=== PATIENT | female | born 1990 | race Caucasian/White ===

== ENCOUNTER 2018-11-29 19:57 | Outpatient (CLI) | payer MEDICAID ==
[~2018-11-29] VITALS: Ht 165.1 cm; Wt 61.0 kg
== END 2018-11-29 22:27 | disposition home or self-care (01) ==
LOC: LDOP 19:57
PROVIDERS: ATTEND Obstetrics & Gynecology
DX: O62.9 Abnormality of forces of labor, unspecified (principal); Z3A.38 38 weeks gestation of pregnancy
CPT/HCPCS: 59025; 80053; 81001; 85025; 87086; 99211; G0463

== ENCOUNTER 2018-12-28 09:37 | Observation (INO) | payer MEDICAID ==
[2018-12-28 09:52] VITALS: BP 111/75
== END 2018-12-29 07:50 | disposition home or self-care (01) ==
LOC: LDOP 09:37 → LDIP 09:41
PROVIDERS: ADMIT Obstetrics & Gynecology; ATTEND Obstetrics & Gynecology
DX: O36.5930 Maternal care for other known or suspected poor fetal growth, third trimester, not applicable or unspecified (principal); O36.8130 Decreased fetal movements, third trimester, not applicable or unspecified; W01.198A Fall on same level from slipping, tripping and stumbling with subsequent striking against other object, initial encounter; Y93.E1 Activity, personal bathing and showering; Z3A.34 34 weeks gestation of pregnancy; Z88.0 Allergy status to penicillin; Z88.8 Allergy status to other drugs, medicaments and biological substances; Z79.899 Other long term (current) drug therapy
CPT/HCPCS: 36415; 59025; 76815; 80307; 85460; 99211; G0378; G0463

== ENCOUNTER 2020-10-27 12:59 | Emergency (ER) | payer MEDICAID ==
[~2020-10-27 12:59] MED LIST: FLUO20CA19 PO; IBUP-1223 PO; NITR100C56 PO; OXYC1TAB14 PO; SERT-331 PO
[2020-10-27 13:31] VITALS: BP 108/68
[2020-10-27 14:20] LABS: BASOPHILS % (AUTO) 1 % (0-1); EOSINOPHILS % (AUTO) 6 % (1-7); LYMPHOCYTES % (AUTO) 27 % (22-44); MEAN CORPUSCULAR HEMOGLOBIN 32.2 pg (27.0-34.8); MEAN CORPUSCULAR HGB CONC 34.2 g/dL (32.4-35.8); MEAN PLATELET VOLUME 9.1 fL (7.4-10.4); MONOCYTES % (AUTO) 11 % (2-9); NEUTROPHILS % (AUTO) 56 % (42-75); PLATELET COUNT 130 x10^3/uL (130-400); RED BLOOD COUNT 3.82 x10^6/uL (3.82-5.3); RED CELL DISTRIBUTION WIDTH 13.9 % (9.6-15.2)
[2020-10-27 14:29] LABS: ANION GAP 8 mmol/L (5-15); CALCIUM 8.5 mg/dL (8.5-10.1); CHLORIDE 113 mmol/L (98-107); CREATININE 1.04 mg/dL (0.55-1.02)
--- NOTE | 2020-10-27 14:30 | NUR ---
Assumed care of pt at this time. This is a 30 yo female who presents to the ER c/o left low back pain radiaiting down left leg that started after tripping over some boxes at work on Monday and has progessively gotten worse. Pt denies N/V/D or pain with urination. Urine sample provided at this time and sent to lab. Significant other at bedside. Pt call light within reach. Will cont to monitor pt.
--- NOTE | 2020-10-27 14:49 | NUR ---
DANIELITO Jacob at bedside for eval.
[2020-10-27 15:00] LABS: MICROSCOPIC INDICATED
[2020-10-27 15:29] LABS: HCG UR SG 1.018 (1.003-1.030)
== END 2020-10-27 15:50 | disposition home or self-care (01) ==
LOC: ED 15:35
DX: S39.012A Strain of muscle, fascia and tendon of lower back, initial encounter (principal); R10.9 Unspecified abdominal pain; X58.XXXA Exposure to other specified factors, initial encounter; Y93.89 Activity, other specified; Y92.89 Other specified places as the place of occurrence of the external cause; Y99.8 Other external cause status
CPT/HCPCS: 36415; 72110; 80048; 81001; 81025; 85025; 87077; 87086; 87186; 99284